=== PATIENT | male | born 1950 | race Caucasian/White ===

== ENCOUNTER 2025-09-18 12:54 | Outpatient (AMB) | payer MEDICARE, SELFPAY ==
[2025-09-18 13:02] VITALS: BP 140/68; PULSE 71; BMI 23.8
--- NOTE | 2025-09-18 13:02 | A.OFFVIS_ITS ---
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 A recent calcium scoring CT scan had reported total score of 112 mainly distributed between the LAD and RCA. Patient himself has no previous cardiac history or any other cardiac symptoms. It seems that he is fairly active including skiing, hiking extra with absolutely no concerns. He does have a history of elevated lipids but has not been on any medications for the same. He would like to just deal with that by diet and exercise. Otherwise, history of prostate cancer but managed by observation only. Otherwise, he feels quite healthy. [facility] Medical History (Updated 09/18/25 @ 14:29 by Kareem Sutton MD) Prostate cancer Asthma Surgical History (Updated 09/18/25 @ 13:20 by Bobbi Stout) H/O knee surgery Family History (Updated 09/18/25 @ 13:21 by Bobbi Stout) Mother Heart problem Father Carotid arterial disease Social History (Updated 09/18/25 @ 13:22 by Bobbi Stout) Alcohol intake: current Alcohol intake frequency: a few times a month Patient Tobacco Use Status: Never used Tobacco Review of Systems Const Denies weakness ENT Denies dizziness Card Denies chest pain, Denies chest pain with activity, Denies syncope, Denies rapid heart rate, Denies pedal edema, Denies edema, Denies leg edema, Denies lightheadedness, Denies palpitations, Denies dyspnea on exertion and Denies orthopnea Resp Reports chest congestion, Denies cough and Denies dyspnea on exertion GI Denies hematochezia and Denies change in stool character Musc Denies abnormal gait, Denies muscle cramps, Denies muscle weakness, Denies numbness, Denies radiating pain into limb and Denies tingling Neuro Denies abnormal gait, Denies dizziness, Denies syncope, Denies numbness, Denies tingling and Denies weakness Endo Denies palpitations Physical Exam Vital Signs: Last Vital Signs Pulse 71 09/18/25 13:02 BP 140/68 H 09/18/25 13:02 BMI result Body Mass Index 23.8 Const General: comfortable and no acute distress Orientation/consciousness: patient oriented x3 HEENT Other: Unremarkable Head: Yes normal to inspection Neck Neck: Yes normal visual inspection Chest Chest palpation & inspection: normal inspection of the chest Resp Auscultation: clear to auscultation bilaterally Cardio Palpation: normal PMI Heart sounds: S1 normal heart sound present, S2 normal heart sound present, no gallops, Murmur heart sound present systolic II/ and at the right sternal border and no rubs GI Palpation (GI): Soft to palpation Back/Spine/Pelvis Other: unremarkable Skin General skin exam: no rashes or lesions noted Neuro General: patient oriented x3 Extrem General: Yes normal to inspection Psych Mental Status: mental status grossly normal Office Procedures EKG Details: EKG with sinus rhythm at 71/Min; possible left atrial enlargement; PACs; [place]. [address]-[id number], Complete Assessment & Plan Assessment & Plan (1) Coronary artery calcification seen on CAT scan: Code(s): I25.10 - Atherosclerotic heart disease of [place] coronary artery without angina pectoris Category: Medical (2) Hyperlipidemia: Code(s): E78.5 - Hyperlipidemia, unspecified Category: Medical Plan Total calcium score 112. Left main 0. LAD 22. Right coronary artery 88. Circumflex 0.5. Ramus 0. Ascending aortic size 4 cm. Per PCP notes, LDL levels have been in the 140-155 range over the last few years. Overall, he is fairly healthy for his age. He does have calcification is coronaries which is not unexpected considering his age. Nevertheless as his lipids are also slightly high we did discuss starting statins. After going over the pros and cons, he felt he would rather do this by diet and exercise as he has always done and avoid statins. We agreed to recheck lipids in about 6 months' time and follow up at that time. Otherwise, he is EKGs shows isolated PACs but he does not feel any palpitations. On exam, he does have a slight systolic murmur which could indicate aortic calcification. We will get an echocardiogram to assess that further. Follow up in 6 months. Discussion Notes: I discussed the results of the patient's recent cardiac CT calcium score, explaining that for his age of 75, the findings are quite good. I clarified that his score places him in the 32nd percentile, meaning 68% of his peers have more calcification, and I characterized the amount as minimal. We reviewed his hyperlipidemia, with an LDL of 155, and the slow upward trend over the past few years. I academically advised that most cardiologists would recommend a statin, as he is already very active and further lifestyle changes may have limited impact. The patient expressed reluctance to take medication and will first attempt dietary modifications and discuss the matter further with his . I recommended an echocardiogram as a complementary test to evaluate his heart valves and overall function, to which he agreed. We agreed to a follow-up appointment in 6 months, and I advised him to obtain a repeat cholesterol panel through his primary care provider prior to that visit. Patient was informed and verbally consented to the use of an ambient scribe for clinic note documentation during this visit. Orders: Orders CA echo transthoracic complete Today I25.10 - Atherosclerotic heart disease of [place] coronary artery without angina pectoris Coding Level of Care Code New Pt Level 4 (75628) Add On Problem Visit Only Diagnoses Coronary artery calcification seen on CAT scan I25.10 Hyperlipidemia E78.5 CPT Codes EKG - CPT: 90531-Yjuskumxqfymzkexm, Complete ([id number])
--- OUTSIDE RECORDS SUMMARY | 2025-09-18 16:46 | XMS_ITS | Encounter Summary ---
Author Organization [facility] Address [address] [place] [address] Phone Care Team Providers Care Mail Carrier Technician Name Role Phone Yarely Mata WHOLESALE LOAN PROCESSOR Unavailable [phone] Derek Peterson MD, [place] Unavailable [phone] Catalino Kelly MD Unavailable [phone] Catalino Kelly MD Primary Care Provider [phone] Catalino Kelly MD Unavailable [phone] Catalino Kelly MD Unavailable [phone] Leandra Reza MD Primary Care Provider [phone] Kianna Lang MD Primary Care Provider [phone] Kianna Lang MD Unavailable Reason for Referral * Physical Therapy (Routine) - Closed Specialty Diagnoses / Procedures Referred By Felice baltazar Referred To Contact Physical Therapy Diagnoses Encounter for rehabilitation Darian Parham DO Phone: tel: fax: mailto: [address] [address] Phone: tel: Referral ID Status Reason Start Date Expiration Date Visits Re quested Visits Authorized [id number] Closed 08/09/2017 08/09/2018 1 1 Encounter Details Date Type Department Care Team (Latest Contact Info) Description 08/09/2017 Transcribe Orders [facility] Primary Care [facility] [address] [place] [address] Darian Parham DO [address] [facility], [address] [place] [address] [email or web address] Encounter for rehabilitation (Primary Dx) Social History Tobacco Use Types Packs/Day Years Used Date Smoking Tobacco: Never Assessed Sex and Gender Information Value Date Recorded Sex Assigned at Male 05/12/2020 5:42 PM EDT Legal Sex Male 10:05 PM EDT Gender Identity Male 05/12/2020 5:42 PM EDT Sexual Orientation Straight 05/12/2020 5: 42 PM EDT documented as of this encounter Plan of Treatment Upcoming Encounters Date Type Department Care Team (Late st Contact Info) Description 08/24/2025 Procedure Pass [address] [place] [address] 10/31/2025 9:15 AM EST Appointment [address] [place] [address] Kathleen Mcghee CNP [address] [place] [phone] [email or web address] 01/01/2026 12:50 PM EDT Procedure visit [facility] [address] [address] Mariano Chen MD [address] [address] [email or web address] Scheduled Referrals Name Type Priority Associated Diagnoses Orde r Schedule Ambulatory referral to [facility] Physical Therapy Outpatient Referral Routine Encounter for rehabilitation Ordered: 08/09/2017 documented as of this encounter Visit Diagnoses Diagnosis Encounter for rehabilitation- Primary documented in this encounter Additional Health Concerns Infection Onset Date Last Indicated Resolved Time CoV-Presumed 04/02/2022 04/02/2022 04/23/2022 1:21 AM EDT documented as of this encounter Care Teams Mail Carrier Technician Relationship Specialty Start Date End Date Catalino Kelly MD [address] [place] [phone] [email or web address] PCP - General Family Medicine 08/10/17 02/04/21 Leandra Reza MD [address] [place] [phone] [email or web address] PCP - General Internal Medicine 02/05/21 06/23/22 Kianna Lang MD [address] [place] [address] [email or web address] PCP - General Family Medicine 06/24/22 Yarely Mata, WHOLESALE LOAN PROCESSOR [address] [place] [address] [email or web address] Historical LMR Provider 07/06/17 09/27/21 Derek Peterson MD, [place] [address] [place] [address] [email or web address] Historical LMR Provider 07/06/17 Catalino Kelly MD [address] [place] [phone] [email or web address] Historical LMR Provider 07/06/17 Catalino Kelly MD [address] [place] [phone] [email or web address] Insurance Assigned Provider 11/13/17 10/20/19 Catalino Kelly MD [address] [place] [address] [address] [place] [phone] [email or web address] Insurance Assigned Provider 12/28/20 09/27/21 Kianna Lang MD [address] [place] [address] [address] [place] [address] [email or web address] Insurance Assigned Provider 12/25/23 documented as of this encounter Additional Source Comments The information contained in this document represents components of the legal health record. It is not the complete legal health record.[facility]
--- OUTSIDE RECORDS SUMMARY | 2025-09-18 16:46 | XMS_ITS | Encounter Summary ---
Author Organization [facility] Address [address] [place] [address] Phone Care Team Providers Care Leasing Professional Name Role Phone Yarely Mata CNP Unavailable [phone] Derek Peterson MD, [place] Unavailable [phone] Catalino Kelly MD Unavailable [phone] Catalino Kelly MD Unavailable [phone] Leandra Reza MD Primary Care Provider [phone] Kianna Lang MD Primary Care Provider [phone] Kianna Lang MD Unavailable Encounter Details Date Type Department Care Team (Latest Contact Info) Description 02/26/2021 Transcribe Orders [address] [place] [address] Leandra Reza MD [address] [place] [phone] [email or web address] Enlarged prostate with urinary obstruction (Primary Dx); Hyperlipidemia, unspecified hyperlipidemia type Social History Tobacco Use Types Packs/Day Years Used Date Smoking Tobacco: Former Cigarettes 0.5 2 1 968 - 1970 Smokeless Tobacco: Never Alcohol Use Standard Drinks/Week Comments Yes 0 (1 standard drink = 0.6 oz pur e alcohol) rarely Sex and Gender Information Value Date Recorded Sex Assigned at Male 05/12/2020 5:42 PM EDT Legal Sex Male 10:05 PM EDT Gender Identity Male 05/12/2020 5:42 PM EDT Sexual Orientation Straight 05/12/2020 5: 42 PM EDT documented as of this encounter Plan of Treatment Upcoming Encounters Date Type Department Care Team (Late st Contact Info) Description 08/24/2025 Procedure Pass [address] [place] [address] 10/31/2025 9:15 AM EST Appointment [address] [place] [address] Kathleen Mcghee CNP [address] [place] [phone] 01/01/2026 12:50 PM EDT Procedure visit [facility] [address] [address] Mariano Chen MD [address] [address] [email or web address] documented as of this encounter Results * Hemoglobin A1c (02/26/2021 10:24 AM EDT) HEMOGLOBIN A1C 5.4 4.3 - 5.8 % [facility] Blood 02/26/2021 10:2 4 AM EDT 02/26/2021 10:27 AM EDT us Leandra Reza MD LAB BLOOD BKR ORDERABLES Fi nal Result [facility] [address] [place] [address] * LFTs (hepatic panel) (02/26/2021 10:24 AM EDT) ALKALINE PHOSPHATASE 48 39 - 117 U/L [facility] TOTAL BILIRUBIN 0.9 0.0 - 1.2 mg/dL [facility] DIRECT BILIRUBIN <0.2 0 - 0.3 mg/dL [facility] Bilirubin (Indirect) NOT CALCULATED 0 - 1.5 mg/dL [facility] AST 21 0 - 37 U/L [facility] ALT 12 0 - 40 U/L [facility] TOTAL PROTEIN 7.0 6.5 - 8.0 g/dL [facility] ALBUMIN 4.2 3.9 - 4.8 g/dL [facility] GLOBULIN 2.8 1 - 4.8 g/dL [facility] A/G Ratio 1.50 1.00 - 4.80 RATIO [facility] Blood 02/26/2021 10:2 4 AM EDT 02/26/2021 10:27 AM EDT us Leandra Reza MD LAB BLOOD BKR ORDERABLES Fi nal Result [address] [address] * (ABNORMAL) Lipid panel (02/26/2021 10:24 AM EDT) HDL 58 mg/dL [facility] Comment: Interpretation <40 mg/dL: Low HDL cholesterol (major risk factor for CHD) Greater than or equal to 60 mg/dL: High HDL cholesterol ( negative risk factor for CHD) HDL - cholesterol is affected by a number of factors, e.g. smoking, excerise, hormones, sex and age. CHOLESTEROL 218 0 - 240 mg/dL [facility] TRIGLYCERIDES 99 30 - 160 mg/dL [facility] LDL 140(H) 50 - 129 mg/dL [facility] Comment: LDL levels in terms of risk for coronary heart disease: <100 mg/dL: Optimal 100-129 mg/dL: Near or above optimal 130-159 mg/dL: Borderline high 160-189 mg/dL: High >190 mg/dL: Very High CARDIAC RISK RATIO 3.8 3.4 - 5.0 C [facility] Blood 02/26/2021 10:2 4 AM EDT 02/26/2021 10:27 AM EDT us Leandra Reza MD LAB BLOOD BKR ORDERABLES Fi nal Result [facility] [address] [place], [place] [id number] * CBC and differential (02/26/2021 10:24 AM EDT) WBC 7.48 4.00 - 11.00 K/uL [facility] RBC 4.71 3.90 - 5.69 M/uL [facility] HGB 15.0 12.4 - 17.3 g/dL [facility] HCT 43.2 37.0 - 51.0 % [facility] PLT 196 140 - 430 K/uL [facility] MCV 91.7 78.0 - 97.0 fL [facility] MCH 31.8 25.0 - 33.0 pg [facility] MCHC 34.7 32.0 - 36.0 g/dL [facility] RDW 11.9 11.0 - 15.0 % [facility] MPV 11.2 8.4 - 12.8 fl [facility] NRBC 0.00 0 /100 WBCs [facility] ABSOLUTE NRBC 0.00 0 K/uL [facility] DIFF METHOD Auto [facility] NEUTS 65.7 43.0 - 75.0 % [facility] LYMPHS 20.2 18.2 - 47.4 % [facility] MONOS 9.4 4.00 - 11.00 % [facility] EOS 4.1 0.0 - 8.0 % [facility] BASOS 0.5 0.0 - 2.0 % [facility] Granulocytes, immature (%) 0.1 0.0 - 0.9 % [facility] ABSOLUTE NEUTS 4.91 1.80 - 7.70 K/uL [facility] ABSOLUTE LYMPHS 1.51 1.00 - 3.10 K/uL [facility] ABSOLUTE MONOS 0.70 0.20 - 0.80 K/uL [facility] ABSOLUTE EOS 0.31 0.00 - 0.80 K/uL [facility] ABSOLUTE BASOS 0.04 0.00 - 0.09 K/uL [facility] Granulocytes, immature 0.01 0.00 - 0.05 K/uL [facility] Blood 02/26/2021 10:2 4 AM EDT 02/26/2021 10:27 AM EDT us Leandra Reza MD LAB BLOOD BKR ORDERABLES Fi nal Result Performing Organization Address [facility] Co de Phone Number [address] [phone] * Basic metabolic panel (02/26/2021 10:24 AM EDT) SODIUM 135 133 - 146 mmol/L [facility] CHLORIDE 101 96 - 108 mmol/L [facility] POTASSIUM 4.7 3.3 - 5.1 mmol/L [facility] CO2 27 21 - 35 mmol/L [facility] BUN 17 6 - 19 mg/dL [facility] CREATININE 1.10 0.5 - 1.5 mg/dL [facility] GLUCOSE 98 70 - 99 mg/dL [facility] CALCIUM 8.8 8.4 - 10.3 mg/dL [facility] EGFR 67 >59 mL/min/1.7 3m2 [facility] Comment:Estimated glomerular filtration rate calculated using the CKD-EPI equation. ANION GAP 12 10 - 20 mmol/L [facility] Blood 02/26/2021 10:2 4 AM EDT 02/26/2021 10:27 AM EDT us Leandra Reza MD LAB BLOOD BKR ORDERABLES Fi nal Result Performing Organization Address [facility] Co de Phone Number [address] [address] documented in this encounter Visit Diagnoses Diagnosis Enlarged prostate with urinary obstruction- Primary Hypertrophy of prostate with urinary obstruction and other lower urinary tract symptoms (LUTS) Hyperlipidemia, unspecified hyperlipidemia type documented in this encounter Additional Health Concerns Infection Onset Date Last Indicated Resolved Time CoV-Presumed 04/02/2022 04/02/2022 04/23/2022 1:21 AM EDT Assessment Noted Time PHQ-2 Depression Total Score: 0 12/23/19 21 11:39 AM EDT documented as of this encounter Care Teams Leasing Professional Relationship Specialty Start Date End Date Leandra Reza MD [address] [place] [phone] [email or web address] PCP - General Internal Medicine 02/05/21 06/23/22 Kianna Lang MD [address] [place] [address] [email or web address] PCP - General Family Medicine 06/24/22 Yarely Mata CNP [address] [place] [phone] [email or web address] Historical LMR Provider 07/06/17 09/27/21 Derek Peterson MD, MS [address] [place] [address] [email or web address] Historical LMR Provider 07/06/17 Catalino Kelly MD [facility] [place] [address] [place] [phone] [email or web address] Historical LMR Provider 07/06/17 Catalino Kelly MD [facility] [place] [address] [place] [phone] [email or web address] Insurance Assigned Provider 12/28/20 09/27/21 Kianna Lang MD [address] [place] [phone] [email or web address] Insurance Assigned Provider 12/25/23 documented as of this encounter Additional Source Comments The information contained in this document represents components of the legal health record. It is not the complete legal health record.[facility]
--- OUTSIDE RECORDS SUMMARY | 2025-09-18 16:46 | XMS_ITS | Clinical Summary ---
Author Organization [facility] Address [address] [place] [id number] Phone Care Team Providers Care Senior Report Developer Name Role Phone Derek Peterson MD, MS Unavailable [phone] Catalino Kelly MD Unavailable Kianna Lang MD Primary Care Provider [phone] Kianna Lang MD Unavailable Allergies Active Allergy Reactions Criticality Noted Date Comments Penicillins Hives 03/29/2019 Budesonide-Formoterol Other (See Comments) High 09/22 Prolonged laryngitis Medications albuterol 90 mcg/actuation inhalerIndicatio ns:Moderate persistent asthma without complication Inhale 2 puffs into the lungs every 6 (six) hours as needed for wheezing. 18 g 5 3 Active acetaZOLAMIDE (DIAMOX) 125 MG tablet Take 1 tablet (125 mg total) by mouth 2 (two) times a day. 26 tablet 4 Active Additional Information Patient not taking.Reported on 08/24/2025 ADVAIR DISKUS 100-50 mcg/dose DISKUSIndication s:Medication refill Inhale 1 puff into the lungs 2 (two) times a day. 180 each 3 5 Active tadalafiL (CIALIS) 20 MG tablet Take 1 tablet (20 mg total) by mouth daily as needed (erectile dysfunction). 30 tablet 2 5 Active multivit with minerals/lutein (MULTIVITAMIN 50 PLUS ORAL) Active ciclopirox (PENLAC) 8 % solutionIndicati ons:Onychomycosi s Apply topically nightly at bedtime. Apply over nail and surrounding skin. Apply daily over previous coat. After seven (7) days, may remove with alcohol and continue cycle. 6.6 mL 2 5 Active diazePAM (VALIUM) 5 MG tablet Take 1 tablet (5 mg total) by mouth every 12 (twelve) hours as needed for anxiety. 10 tablet 1 5 Active Active Problems Problem Noted Date Diagnosed Date Encounter for annual wellness exam in Medicare p atient 07/18/2025 Assessment & Plan (07/18/2025 11:10 AM EDT): Medicare annual wellness visit conducted today - completed health risk assessment, established list of current providers and suppliers, updated medical / family history, reviewed functional ability and safety level, screened for depression. Physical assessment completed as indicated. Counseled on screening schedule and provided written copy. Risk factors and interventions discussed. Referrals provided as indicated. Opioid use: Patient is not taking any prescription opioid medication . Follow-up in 1 year recommended for AWV with PCP Sinus arrhythmia 04/12/2024 Assessment & Plan (07/18/2025 11:10 AM EDT): Stable, asymptomatic at this time Assessment & Plan (04/12/2024 11:25 AM EDT): Noted upon physical exam, irregular rhythm regular rate. ECG performed in office showed sinus arrhythmia. Discussed that this should not affect his upcoming hike in the [employer]. Altitude sickness preventative measures 04/12/20 Assessment & Plan (07/18/2025 11:10 AM EDT): Stable at this time, used Diamox in the past with good success. Assessment & Plan (04/12/2024 2:45 PM EDT): Discussed risks and benefits, how to use diamox. Discussed only treatment for altitude sickness is GOING DOWN. Pt agrees Acute left-sided thoracic back pain 01/09/2024 Assessment & Plan (07/18/2025 11:10 AM EDT): Stable, still having intermittent symptoms. Assessment & Plan (01/09/2024 2:31 PM EDT): Location of pain seems most consistent with nephrolithiasis, Cannot rule out muscular strain or constipation. Unlikely to be GI related though given absence of other findings. Will get XR and follow with CT if needed. Chronic rhinitis 09/03/2021 Assessment & Plan (07/18/2025 11:10 AM EDT): Stable, reports having post nasal drip with supine position to standing. Not currently followed by ENT due to no changes. Assessment & Plan (12/02/2022 9:27 AM EDT): Advised that he continue to use Flonase regularly when he has symptoms, though at this time does not appear to be needing it. Agree with ENT evaluation next month. Assessment & Plan (02/06/2022 12:14 PM EDT): Suspect worsened by allergy season. Add back Flonase. Assessment & Plan (10/31/2021 9:55 AM EST): Significantly improved with Flonase. We reviewed risks and benefits of long-term use of Flonase, including risk of nosebleeds. Systemic corticosteroid absorption from Flonase is not felt to be significant. Alternatives including oral antihistamines, nasal antihistamines (azelastine) and leukotriene modifying agents (e.g. montelukast) were discussed as possibilities. For now, he will continue Flonase and we will reconvene in 6 months. Assessment & Plan (09/03/2021 11:32 AM EST): He notes at times discolored post-nasal drip in the morning without significant nasal congestion. We discussed addition of an oral antihistamine and consideration of Flonase Sensimist being added to his regimen as a diagnostic and therapeutic trial. LTBI (latent tuberculosis infection) 06/28/2019 Overview (06/28/2019): With positive PPD, per patient, around 1983 and again in February 2019 (pre- employment for [employer]) confirmed with positive QuantiFERON. Chest x-ray clear. No signs or symptoms of active TB reported. Assessment & Plan (07/18/2025 11:10 AM EDT): Unchanged, stable, denies any new symptoms at this time. Assessment & Plan (06/28/2019 9:12 AM EDT): Patient was extensively educated on the phone back in February, and we reviewed this in broad terms again today. He continues to decline in LTBI therapy, which is not unreasonable in this case given that his PPD has presumably been positive for over 35 years and the highest risk of reactivation is within a 2 years following exposure and conversion. Urinary frequency 03/29/2019 Assessment & Plan (07/18/2025 11:10 AM EDT): Mya, followed by urology. Denies any new/worsening symptoms. Prostate cancer 03/29/2019 Assessment & Plan (07/18/2025 11:10 AM EDT): Mya, followed by urology, up to date with PSA testing. Assessment & Plan (10/27/2023 8:00 PM EST): Stable and continues to follow with Dr Robertson. We discussed tamsulosin and what the purpose of it is. He may continue to use it prn, and understands s/s of urinary retention. Assessment & Plan (07/07/2023 10:22 AM EDT): Following up with his urologist today, they are in the watchful waiting stage at this point. He is having increased urinary frequency which is problematic but not having this at night which I think is reassuring. Consider switching or adding medication Ditropan. Assessment & Plan (03/31/2023 6:32 AM EDT): Prolonged recovery after biopsies. Currently still in the staging phase, not entirely clear what treatment plan will be ( if early I suspect targeted radiation). He hopes to be able to do treatment locally. Will have PET this week and we will know more about next steps. Moderate persistent asthma without complication 10/20/2017 Assessment & Plan (07/18/2025 11:10 AM EDT): Stable at this time, no recent flare ups. Continues using Advair and prn albuterol. Assessment & Plan (04/12/2024 2:44 PM EDT): Stable on current medication. [place] and ensured us he would bring his albuterol inhaler Assessment & Plan (07/07/2023 10:21 AM EDT): Stable on current medication. Assessment & Plan (03/31/2023 6:33 AM EDT): Continues to follow [facility] pulmonology, but currently very low impact on activity/ breathing Assessment & Plan (12/02/2022 9:27 AM EDT): Currently well controlled on low-dose Advair, which he uses on average only once a day. We agreed to monitor clinically without repeat PFT at this time, as it would be unlikely to alter management. Assessment & Plan (02/06/2022 12:14 PM EDT): It seems that his asthmacontrol has worsened over the past several weeks. I suspect it may be related to worsening postnasal drip and the throes of peak allergy season. I doubt an active infection. We agreed no need for prednisone, antibiotics or chest imaging at this time. We will try to add back Flonase, continue oral histamine, and increase Advair to 250-50 twice daily. If symptoms persist after 3 to 4 weeks, will consider further increase in Advair and adding Singulair. Spirometry and consideration of chest imaging could be entertained then as well. Assessment & Plan (09/03/2021 11:36 AM EST): Asthma symptoms have become more noticeable, especially his harsh chest congestion and coughing with FVC, despite ongoing use of twice daily low-dose Advair Diskus. We reviewed possible extrapulmonary factors that could worsen his asthma control, including postnasal drip and acid reflux. We will try to enhance management of both of these entities and continue low-dose Advair twice daily for now. If symptoms do not improve in the next 6 to 8 weeks, we will consider repeat spirometry (vs. complete PFT) as well as a chest x-ray. We will not escalate asthma therapies at this time. Assessment & Plan (03/26/2021 9:46 AM EDT): Appears relatively well controlled on twice daily low-dose Advair. He will continue this for now and, in the coming weeks and months, consider cutting back again depending on environmental factors. We discussed repeat spirometry and, given the ongoing COVID-19 pandemic, agreed to defer for now given adequate clinical status. He is fully vaccinated against COVID-19. Assessment & Plan (08/07/2020 10:19 AM EST): Clinically stable on low-dose Advair, which he does not use every day but continues to use during periods of time when he has asthma related symptoms. This seems to be working well for him. I printed a prescription for 3 inhalers at a time with 3 refills for him to send to his mail order pharmacy in [place]. We discussed risks and benefits of the influenza vaccine today, and he declined. Assessment & Plan (05/12/2020 6:59 PM EDT): Continue with Advair, one puff daily which is patient's reported home regimen. Assessment & Plan (01/31/2020 10:11 AM EDT): Clinically stable. Continue with Advair, which he uses more on an as needed approach than standing. Given mild symptoms and recent data, this is likely a reasonable approach which we will continue. If office is open in the fall, will repeat spirometry and FeNO in about 6 months. He will call us with any concerns in the intervening time. Assessment & Plan (06/28/2019 9:59 AM EDT): His elevated exhaled nitric oxide measurement and his spirometry results today suggest that he would likely benefit from resuming a maintenance inhaled corticosteroid inhaler (e.g. Flovent, or ICS/LABA Advair) to reduce the chance of airway remodeling from chronic unchecked inflammation. This was discussed with him, but as he is feeling very well and prefers not to expose his body to medications he feels he does not absolutely need, he prefers to hold off and repeat physiologic testing in approximately 6 months. We also discussed the consideration of a trial of Singulair, but he declined this as well. He was offered influenza vaccination, but declined. Assessment & Plan (06/29/2018 1:18 PM EDT): Well-controlled on low-dose Advair when he has exacerbations (typically triggered by respiratory tract infections), and off maintenance inhalers when he is well. I expect we will be able to come off Advair in the coming weeks. Repeat exhaled nitric oxide measurement in 6 months at the time of his follow-up visit here. Assessment & Plan (12/22/2017 10:59 AM EDT): He appears to have mild intermittent asthma at this time, and does not require use of a maintenance inhaler. We reviewed indications for resumption of Advair use. He will call us with any questions or concerns in the next 6 months. I will see him back in 6 months with a repeat exhaled nitric oxide measurement at that time. Assessment & Plan (10/20/2017 10:07 AM EST): Given postinfectious cough and bronchitic symptoms, we discussed going back on Advair 100/50 twice daily, rinsing mouth after each use. The patient will continue on this for at least one month, until better. If he returns to baseline, he will discontinue use. He will start monitoring his peak flows and keep track of his personal best when he is at his baseline. We'll schedule an appointment for 3 months from now when we will perform spirometry and exhaled nitric oxide measurements. If he feels completely well, he may cancel. He declines flu shot today, risks and benefits were reviewed in detail. Erectile dysfunction 10/20/2017 Assessment & Plan (07/18/2025 11:10 AM EDT): Stable, followed by urology Gastroesophageal reflux disease 10/20/2017 Assessment & Plan (07/18/2025 11:10 AM EDT): Stable, not currently on treatment Assessment & Plan (12/02/2022 9:27 AM EDT): Continue PPI use as directed by GI. We will obtain records from [facility] (office visit and endoscopy from last fall). Adequate control of reflux symptoms is important in the setting of underlying obstructive lung disease. Assessment & Plan (10/31/2021 9:54 AM EST): Unclear how much this is truly present time can train for symptoms as his asthma has remained well controlled with addition of Flonase, now off PPI. He has connected with a lookback coordinator in [place]. He will make a decision as to whether he desires to pursue upper endoscopy as scheduled this coming summer. Assessment & Plan (09/03/2021 11:35 AM EST): He is willing to try daily PPI until his next visit here. He is also seeing gastroenterology at [facility] in about 5 weeks. Assessment & Plan (06/28/2019 9:20 AM EDT): Essentially asymptomatic and on no medication. Adequate control of reflux symptoms is important in the setting of underlying obstructive lung disease. Assessment & Plan (06/29/2018 1:18 PM EDT): No symptoms currently, off antacids. Adequate control of reflux symptoms as important in the setting of underlying obstructive lung disease. Assessment & Plan (12/22/2017 10:59 AM EDT): Adequate control of reflux symptoms as important in the setting of underlying obstructive lung disease. There are currently no symptoms off all antacid medications, and asthma is well controlled in this setting. Assessment & Plan (10/20/2017 10:08 AM EST): Symptoms are mild and he would prefer to stay off PPIs. If his symptoms worsen despite dietary modifications or if his asthma cannot be adequately controlled, he will go back on a once daily proton pump inhibitor. Loss of libido 10/20/2017 Assessment & Plan (07/18/2025 11:10 AM EDT): Unchanged, continues to be problematic. Not interested in repeating testosterone labs since he would not treat this. Assessment & Plan (01/09/2024 2:31 PM EDT): Will get T level, however not much in the way of supplementation is available to pt given his known prostate cancer. Certainly something he could discuss w urology. Mixed hyperlipidemia 10/20/2017 Assessment & Plan (07/18/2025 11:10 AM EDT): Stable, will recheck labs, order placed Orders: Lipid panel; Future Assessment & Plan (04/12/2024 12:34 PM EDT): Due for lipid re-check, we will make adjustments and discuss risk stratification based on the results. Assessment & Plan (03/31/2023 6:32 AM EDT): Discussed mild hyperlipidemia pt is interested in continuing lifestyle modifications and declines statin treatment at this time. Pulmonary nodules 10/20/2017 Overview (12/22/2017): Stable =< 5 mm nodules at a 12-month interval (November 2015-2017). Assessment & Plan (07/18/2025 11:10 AM EDT): Per chart review: Stable =< 5 mm nodules at a 12-month interval (November 2015- 2016). No recent scans in the chart. Appears low risk, tobacco history with only 1 pack year, quit 1970. Will hold off on repeating scan unless PCP feels need to do so. Assessment & Plan (10/31/2021 9:56 AM EST): Well-controlled on low-dose Advair and Flonase, which we will continue. He has not required use of his rescue inhaler. Given the ongoing COVID-19 pandemic, as well as clinical stability, we elected to monitor clinically for now. We could consider ordering repeat spirometry testing at our next visit together in 6 months. He is fully vaccinated against COVID-19 (Pfizer x3). Influenza vaccination was again advised today. Assessment & Plan (12/22/2017 9:56 AM EDT): No further dedicated follow-up is indicated in this context. Assessment & Plan (10/20/2017 10:06 AM EST): 5 mm and smaller nodules stable at 12 month interval (November 2015 - November 2016) in a patient with a minimal remote smoking history. Per updated Fleischner criteria, there is no indication follow-up. Patient understands and agrees with this management. Resolved Problems Problem Noted Date Diagnosed Date Resolved Date Closed nondisplaced fracture of lateral malleolus of left fibula 09/24/2023 07/18/2025 Assessment & Plan (10/27/2023 7:59 PM EST): I think [facility] was a fairly good indicator of his resilience and healing. He is not excited about a repeat X ray and we will hold off on that unless new symptoms, instability or swelling develop. Nasal pain 07/07/2023 07/18/2025 Assessment & Plan (07/07/2023 10:20 AM EDT): I cannot actually visualize the site of his pain, the inferior turbinate is mildly edematous but I think it is more just a narrow airway that is obstructing the view. I have advised him to continue using the nasal spray to take down any inflammation and get over to see ENT if not improving for scope. I suspect that there is probably an inflamed nasal polyp there. Ganglion cyst of flexor tend on sheath of finger of right hand 07/21/2022 07/18/2025 Assessment & Plan (07/21/2022 10:26 AM EDT): Most consistent with ganglion cyst. I do not think this needs intervention right now as it is not impairing function or causing pain, but I am happy to refer him to see hand for further management Urinary retention 05/13/2020 03/31/2023 Assessment & Plan (05/13/2020 11:45 AM EDT): Possibly due to nerve block. Patient required Santiago catheter replaced overnight. This morning he is feeling much better. He has had a significant amount of output. Creatinine noted at 0.9 Santiago catheter removed today -Will do a post void trial, if he fails he will need to have the Santiago catheter placed back in and follow-up with urology as an outpatient Patellar tendon avulsion, le ft, initial encounter 05/12/2020 03/26/2021 Assessment & Plan (05/13/2020 11:46 AM EDT): POD#1 s/p repair patellar tendon and I & D. Patient tolerated the procedure well. He does have some postoperative pain with movement. Dressing is clean dry and intact over the left knee/brace in place. -Pain control with Tylenol PRN -Dilaudid as needed -PT/OT -Question home versus rehab Patellar tendon rupture, lef t, initial encounter 05/12/2020 07/18/2025 Abnormal chest x-ray 06/29/2018 021 Overview (06/29/2018): Small medial right lower lobe infrahilar density seen on 06/09/2018. Assessment & Plan (06/29/2018 1:20 PM EDT): Given clinical history, I suspect this was a pneumonia. We will repeat a chest x-ray in mid July at an 8-week interval. We will call him with results. We reviewed the fact that if the infiltrate fails to clear, I will likely advise basic blood work for kidney function testing and a CT of the chest with IV contrast. Cough 10/20/2017 12/22/2017 Insomnia 10/20/2017 07/18/2025 Allergic rhinitis 10/20/2017 09/03/2021 Assessment & Plan (03/26/2021 9:45 AM EDT): Advised that he consider a trial of xeji-xec-mzumibm cetirizine or fexofenadine. He would prefer not to use nasal steroids, prescription nasal antihistamines or leukotriene agents. Assessment & Plan (08/07/2020 10:19 AM EST): This is mild. I recommended that he could try kcmv-rze-wezecmv cetirizine or fexofenadine. Assessment & Plan (01/31/2020 10:11 AM EDT): Clinically quiescent, Assessment & Plan (06/28/2019 10:00 AM EDT): He does have intermittent symptoms of rhinitis, but is not interested in a trial of medication (we discussed Singulair specifically). We did review the fact that this may also worsen asthma control if it remains unchecked. Assessment & Plan (06/29/2018 1:19 PM EDT): Quiescent. Assessment & Plan (12/22/2017 10:59 AM EDT): Quiescent at this time. Encounters Date Type Department Care Team Description 08/24/2025 11:00 AM EST Office Visit [facility] [address] [id number] Kathleen Mcghee CNP Adenocarcinoma of prostate (Primary Dx); Lower urinary tract symptoms (LUTS) 07/18/2025 10:20 AM EDT Telemedicine [facility] Support [address] [place] [id number] Erica Mistry, LINDSEY, POWER ELECTRON[employer] ENGINEER Encounter for annual wellness exam in Medicare patient (Primary Dx); Mixed hyperlipidemia; Prostate cancer; Sinus arrhythmia; Chronic rhinitis; Moderate persistent asthma without complication; Pulmonary nodules; Gastroesophageal reflux disease, unspecified whether esophagitis present; Erectile dysfunction, unspecified erectile dysfunction type; Loss of libido; Acute left-sided thoracic back pain; Altitude sickness preventative measures; Urinary frequency; LTBI (latent tuberculosis infection) 07/12/2025 Telephone [facility] [address] [address] Kathleen Mcghee CNP 07/09/2025 Orders Only [facility] [address] [place] [address] Provider, MD Jacinta 07/06/2025 7:05 AM EDT - 07/06/2025 11:59 PM EDT Hospital Encounter [facility] [address] [place] [address] Kathleen Mcghee, POWER ELECTRON[employer] ENGINEER Discharge Disposition: Home or Self Care from Last 3 Months Immunizations Immunization Administration Dates Next Due COVID-19 (Pre-07/12) Moderna Vaccine, Bivalent 6 mo+ 02/13/2023 COVID-19 (Pre-07/12) Pfizer Vaccine, mRNA, PF ,10/13/2020 COVID-19 Moderna Spikevax Vaccine 12+ 06/22/2025 Influenza High-Dose Quadrivalent Preservative Fr ee IM 06/22/2025 Influenza Quadrivalent Preservative Free IM 06/21 Pneumococcal conjugate PCV13 06/01/2018 Pneumococcal polysaccharide PPSV23 12/25/2020 RSV Vaccine, Unspecified 06/22/2025 Td (adult) 5 Lf Tetanus Toxoid, PF, Adsorbed 12/2015 Td (adult),2 Lf Tetanus Toxoid, PF, Adsorbed Zoster live 12/04/2009 Zoster recombinant 06/11/2019,03/24/2019 Family History Medical History Relation Comments Diabetes type II Father carotid obstruc tion, dementia? Stroke Father Parkinson's disease Maternal Grandfather Heart attack Maternal Grandmother Breast cancer Mother Cancer Mother Ulcerative colitis Mother Heart attack Paternal Grandmother Lung disease Neg Hx Prostate cancer Neg Hx Relation Status Comments Father Maternal Grandfather Maternal Grandmother Mother Paternal Grandmother Social History Tobacco Use Types Packs/Day Years Used Date Smoking Tobacco: Former Cigarettes 0.5 2 1 968 - 1970 Smokeless Tobacco: Never Alcohol Use Standard Drinks/Week Comments Yes 0 (1 standard drink = 0.6 oz pur e alcohol) rarely Child or Family Care Answer Date Record ed Do you have problems with on e of the following making it difficult for you to work, study, or receive health care? No 07/18/2025 Education Answer Date Recorded Are you interested in more education? Not on kellen e 01/15/2023 Are you concerned about learning? Not on file 01/15/2023 No 01/15/2023 No 01/15/2023 Food Answer Date Recorded Within the past 6 months we worried whether our food would run out before we got money to buy more. Never True 07/18/2025 Within the past 6 months the food we bought just didn't last and we didn't have enough money to get more. Never True Residential Stability Answer Date Recor ded What is your housing situation today? I have mick sing 07/18/2025 How many times have you move d in the past 12 months? Zero (I did not move) 07/18/2025 Paying for Meds Answer Date Recorded Do you have trouble paying for medicines? No 07/18/2025 Paying Utility Bills Answer Date Record ed Do you have trouble paying your heating or elect ricity bill? No 07/18/2025 Transportation Answer Date Recorded Has the lack of transportati on kept you from medical appointments or from getting medications? No 07/18/2025 Digital Access Answer Date Recorded No 07/18/2025 Yes 07/18/2025 Do you have reliable internet access at home? Ye s 07/18/2025 Do you have a device (e.g., phone, tablet, computer) with a working camera? Yes 07/18/2025 Intimate Partner Violence Answer Date R ecorded Denied Basic Needs Not on file 04/05/2024 In the past 12 months have y ou been in a relationship with a person who hurts, threatens, or tries to control you? No 04/05/2024 Worried food would run out Not on file 04/05 In the past 12 months have y ou been in a relationship with a person who hurts, threatens, or tries to control you? No 04/05/2024 Sex and Gender Information Value Date Recorded Sex Assigned at Male 05/12/2020 5:42 PM EDT Legal Sex Male 10:05 PM EDT Gender Identity Male 05/12/2020 5:42 PM EDT Sexual Orientation Straight 05/12/2020 5: 42 PM EDT Last Filed Vital Signs Vital Sign Reading Time Taken Comments Blood Pressure 122/62 05/16/2025 11:32 AM EDT Pulse 61 05/16/2025 11:32 AM EDT Temperature 36.7 C (98.1 F) 02/08/2024 8:18 AM EDT Respiratory Rate 18 02/08/2024 8:18 AM EDT Oxygen Saturation 99% 05/16/2025 11:32 AM EDT Inhaled Oxygen Concentration - - Weight 72.6 kg (160 lb) 07/18/2025 10:16 AM EDT Height 175.3 cm (5' 9 ) 07/18/2025 10:16 AM EDT Body Mass Index 23.63 07/18/2025 10:16 AM EDT Plan of Treatment Upcoming Encounters Date Type Department Care Team (Late st Contact Info) Description 08/24/2025 Procedure Pass [address] [place] [address] 10/31/2025 9:15 AM EST Appointment [address] [place] [address] Kathleen Mcghee CNP 165 [place] [address] 01/01/2026 12:50 PM EDT Procedure visit [facility] [address] [address] Mariano Chen MD [address] [address] [email or web address] Health Maintenance Due Date Last Done Comments COLOGUARD 1993 FIT TEST 1993 FOBT 1993 SIGMOIDOSCOPY 1993 VIRTUAL COLONOSCOPY 1993 COLONOSCOPY 10/30/2025 10/30/2015 COLORECTAL CANCER SCREENING 10/30/2025 COVID-19 VACCINE ( season) 2025 06/23/2025, 06/22/2025, 09/23/2024, Additional history exists Adult Td,Tdap Booster 01/21/2026 01/22/2016, 005 DEPRESSION SCREENING 07/18/2026 07/18/2025 LIPID PANEL 07/23/2026 07/23/2025, 07/3 09/2023, 03/26/2023, Additional history exists ZOSTER VACCINES Completed 06/11/2019, 070 01/2019, 12/04/2009 HEPATITIS C SCREENING Completed 09/06/2019, 019 PNEUMOCOCCAL VACCINES (50+ years) Completed 12/25/2020, 06/01/2018 HEPATITIS A VACCINES Aged Out 03/28/2025, 09/09/20 24 No longer eligible based on patient's age to complete this topic INFLUENZA VACCINE Completed 06/23/2025, , 09/23/2024, Additional history exists RSV VACCINE Completed 06/23/2025, 06/22/2025 SMOKING STATUS SCREENING (Once After 26 Yrs) Completed 08/24/2025 HIB VACCINES Aged Out No longer eligi ble based on patient's age to complete this topic MENINGOCOCCAL VACCINES (ACWY) Aged Out No longer eligible based on patient's age to complete this topic MENINGOCOCCAL VACCINES (B) Aged Out N o longer eligible based on patient's age to complete this topic Medical Devices Not on file Procedures Procedure Name Priority Date/Time Associated Diagnosis Comments CT CARDIAC CALCIUM SCORING Routine 08/30/2025 10:03 AM EST Pure hypercholesterolemia LIPID PANEL Routine 07/23/2025 7:11 AM EST Mixed hyperlipidemia PSA DIAGNOSTIC (MONITORING) Routine 07/06/2025 7:06 AM EDT Adenocarcinoma of prostate OUTSIDE PATHOLOGY Routine 07/04/2025 3:5 8 PM EDT HEPATITIS C ANTIBODY, QUALITATIVE Routine 09/06/2019 9:35 AM EST Need for hepatitis C screening test COLONOSCOPY FOR RESULT ENTRY ONLY Routine 10/30/2015 from Last 3 Months or Most Recently Relevant to Health Maintenance Results * CT Cardiac Calcium Scoring (08/30/2025 10:03 AM EST) Anatomical Region Laterality Modality Heart CT Diagnostic us Kianna Lang MD IMG CT CARDIAC Final Result * (ABNORMAL) Lipid Panel (07/23/2025 7:11 AM EST) Cholesterol 237(H) <200 mg/dL 07/23/2025 10:38 AM [facility] HDL 56 >=40 mg/dL 07/23/2025 10:38 AM [facility] Calculated LDL 159(H) <130 mg/dL 07/23/2025 10:38 AM [facility] Comment:LDL is calculated us ing the Lucia-NIH equation (AYDIN Cardiol. 2019January 18;5(5):540-548). Non-HDL Cholesterol 181 mg/dL 07/23/2025 10:38 AM [facility] Comment:Guidelines suggest a non-HDL cholesterol goal 30 mg/dL higher than the patient-specific LDL cholesterol goal. Cardiac Risk Ratio 4.2 0.0 - 5.0 2024 10:38 AM [facility] Triglycerides 121 <=150 mg/dL 07/23/2025 10:38 AM [facility] Blood 07/23/2025 7:11 AM EST 07/23/2025 7:11 AM EST us Kianna Lang MD LAB BLOOD BKR ORDERABLES Final R esult Performing Organization Address City/[facility]/ZIP Co de Phone Number [address] [address] * (ABNORMAL) PSA diagnostic (monitoring) (07/06/2025 7:06 AM EDT) PSA 7.72(H) 0 - 4.00 ng/mL [facility] Comment: Test Methodology Vincenzo e801 Patient results determined by assays using different manufacturers or methods may not be comparable. Blood 07/06/2025 7:06 AM EDT 07/06/2025 7:12 AM EDT us Kathleen Mcghee CNP LAB BLOOD BKR ORDERABLES Final Result Performing Organization Address City/[facility]/ZIP Co de Phone Number [address] [address] * Outside Pathology (07/04/2025 3:58 PM EDT) us Historical Provider MD PATHOLOGY ORDERABLES Daylin l Result * Hepatitis C antibody, qualitative (09/06/2019 9:35 AM EST) HCV NON-REACTIV E NON-REACTI VE [facility] Blood 09/06/2019 9:35 AM EST 09/06/2019 9:38 AM EST Catalino Kelly MD LAB BLOOD BKR ORDERABLES Final Result [facility] [address] [place] [address] * COLONOSCOPY FOR RESULT ENTRY ONLY (10/30/2015) Colonoscopy 10yr us Historical Provider HEALTH MAINTENANCE Final Result from Last 3 Months or Most Recently Relevant to Health Maintenance Insurance MEDICARE PART A & B [facility] MEDEX SUPPLEMENT MEDICARE PART A & B [email or web address] MEDEX SUPPLEMENT MEDICARE PART A & B [email or web address] MEDEX SUPPLEMENT MEDICARE PART A & B [email or web address] MEDEX SUPPLEMENT MEDICARE PART A & B [email or web address] MEDEX SUPPLEMENT MEDICARE PART A & B [facility] MEDEX SUPPLEMENT MEDICARE PART A & B [employer] MEDEX SUPPLEMENT MEDICARE PART A & B [employer] CROSS MEDEX SUPPLEMENT MEDICARE PART A & B [email or web address] MEDEX SUPPLEMENT Advance Directives For more information, please contact: [phone] (9AM - 5PM [facility], Wednesday-Wednesday) Documents on File Type Date Recorded 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 04/19/2024 7:37 PM Healthcare Proxy 09/28/2019 mailed back to pt * Full Code (Latest Code Status on File) Date Activated Date Inactivated Comments 05/12/2020 8:12 PM Question Answer Comments Code Status Confirmed With: Patient Code Status Communicated To: Inpatient Attending Care Teams Senior Report Developer Relationship Specialty Start Date End Date Kianna Lang MD [address] [place] [address] [email or web address] PCP - General Family Medicine 06/24/22 Derek Peterson MD, MS [address] [place] [address] Historical LMR Provider 07/06/17 Catailno Kelly MD [address] [place], [place] [address] [place] [phone] [email or web address] Historical LMR Provider 07/06/17 Kianna Lang MD [address] [place] [address] [email or web address] Insurance Assigned Provider 12/25/23 Additional Source Comments The information contained in this document represents components of the legal health record. It is not the complete legal health record.[facility]
--- OUTSIDE RECORDS SUMMARY | 2025-09-18 16:46 | XMS_ITS | Encounter Summary ---
Author Organization [facility] Address [address] [place] [address] Phone Care Team Providers Care Roto Mixer Operator Name Role Phone Derek Peterson MD, [place] Unavailable [phone] Catalino Kelly MD Unavailable [phone] Leandra Reza MD Primary Care Provider Kianna Lang MD Primary Care Provider [phone] Kianna Lang MD Unavailable Encounter Details Date Type Department Care Team (Late st Contact Info) Description 12/04/2021 Procedure Pass [address] [place] [address] Social History Tobacco Use Types Packs/Day Years [...] st Contact Info) Description 08/24/2025 Procedure Pass [address] [place] [address] 10/31/2025 9:15 AM EST Appointment [facility], [facility] - [address] [place] [address] Kathleen Mcghee CNP 165 [place] [phone] 01/01/2026 12:50 PM EDT Procedure visit [facility] [address] [address] Mariano Chen MD [address] [address] [email or web address] documented as of this encounter Visit Diagnoses Not on filedocumented in this encounter Additional Health Concerns Infection Onset Date Last Indicated Resolved Time CoV-Presumed 04/02/2022 04/02/2022 04/23/2022 1:21 AM EDT Assessment Noted Time PHQ-2 Depression Total Score: 0 12/23/19 11:39 AM EDT documented as of this encounter Care Teams Roto Mixer Operator Relationship Specialty Start Date End Date Leandra Reza MD [address] [place], [place] [address] [place] [address] [email or web address] PCP - General Internal Medicine 02/05/21 06/23/22 Kianna Lang MD [address] [place] [address] [email or web address] PCP - General Family Medicine 06/24/22 Derek Peterson MD, MS [address] [place] [address] [email or web address] Historical LMR Provider 07/06/17 Catalino Kelly MD [address] [place] [address] [address] [place] [address] [email or web address] Historical LMR Provider 07/06/17 Kianna Lang MD 15 [facility] 201 [place] [address] [email or web address] Insurance Assigned Provider 12/25/23 documented as of this encounter Additional Source Comments The information contained in this document represents components of the legal health record. It is not the complete legal health record.[facility]
--- OUTSIDE RECORDS SUMMARY | 2025-09-18 16:46 | XMS_ITS | Encounter Summary ---
Author Organization [facility] Address [address] [place] [address] Phone Care Team Providers Care Engineering Lecturer Name Role Phone Yarely Mata CNP Unavailable [phone] Derek Peterson MD, [place] Unavailable [phone] Catalino Kelly MD Unavailable [phone] Catalino Kelly MD Unavailable [phone] Leandra Reza MD Primary Care Provider [phone] Kianna Lang MD Primary Care Provider [phone] Kianna Lang MD Unavailable Encounter Details Date Type Department Care Team (Latest Contact Info) Description 02/05/2021 Transcribe Orders Virtual Department 30 [place] [address] Leandra Reza MD [address] [place] [phone] [email or web address] Personal history of tobacco use (Primary Dx) Social History Tobacco Use Types [...] st Contact Info) Description 08/24/2025 Procedure Pass [address] [place] [address] 10/31/2025 9:15 AM EST Appointment [address] [place] [address] Kathleen Mcghee CNP 165 [place] [address] 01/01/2026 12:50 PM EDT Procedure visit [facility] [address] [address] Mariano Chen MD [address] [address] documented as of this encounter Results * US Abdominal Aortic Screening (02/26/2021 10:48 AM EDT) Anatomical Region Laterality Modality Abdomen Ultrasound 02/26/2021 11:0 6 AM EDT Impressions 02/26/2021 11:07 AM EDT No evidence of abdominal aortic aneurysm. Narrative 02/26/2021 11:07 AM EDT HISTORY: Screening for abdominal aortic aneurysm. COMPARISON: None. FINDINGS: Abdominal aorta is normal in course and caliber. Common iliac arteries normal in caliber. No evidence of aneurysms. Procedure Note Blade Kulkarni MD - 02/26/2021 HISTORY: Screening for abdominal aortic aneurysm. COMPARISON: None. FINDINGS: Abdominal aorta is normal in course and caliber. Common iliac arteriesnormal in caliber. No evidence of aneurysms. IMPRESSION: No evidence of abdominal aortic aneurysm. us Leandra Reza MD IMG US ABDOMEN Final Resul t documented in this encounter Visit Diagnoses Diagnosis Personal history of tobacco use- Primary Personal history of tobacco use, presenting hazards to health Personal history of tobacco use Personal history of tobacco use, presenting hazards to health documented in this encounter Additional Health Concerns Infection Onset Date Last Indicated Resolved Time CoV-Presumed 04/02/2022 04/02/2022 04/23/2022 1:21 AM EDT Assessment Noted Time PHQ-2 Depression Total Score: 0 12/23/19 11:39 AM EDT documented as of this encounter Care Teams Engineering Lecturer Relationship Specialty Start Date End Date Leandra Reza MD [address] [place] [address] PCP - General Internal Medicine 02/05/21 06/23/22 Kianna Lang MD [address] [place] [address] PCP - General Family Medicine 06/24/22 Yarely Mata CNP [address] [place] [address], [address] [place] [address] Historical LMR Provider 07/06/17 09/27/21 Derek Peterson MD, MS [address] [place] [address] Historical LMR Provider 07/06/17 Catalino Kelly MD [address] [place] [address] [email or web address] Historical LMR Provider 07/06/17 Catalino Kelly MD [address] [place] [address] [address] [place] [address] [email or web address] Insurance Assigned Provider 12/28/20 09/27/21 Kianna Lang MD [address] [place] [address] [email or web address] Insurance Assigned Provider 12/25/23 documented as of this encounter Additional Source Comments The information contained in this document represents components of the legal health record. It is not the complete legal health record.[facility]
--- OUTSIDE RECORDS SUMMARY | 2025-09-18 16:46 | XMS_ITS | Encounter Summary ---
Author Organization [facility] Address [address] [facility] [address] [place] [address] Phone Care Team Providers Care Inspector Salvage Name Role Phone Derek Peterson MD, [place] Unavailable [phone] Catalino Kelly MD Unavailable Kianna Lang MD Primary Care Provider [phone] Kianna Lang MD Unavailable Reason for Visit * Reason Onset Date Comments lump in palm 07/14/2022 Encounter Details Date Type Department Care Team (Late st Contact Info) Description 07/14/2022 Nurse Triage [facility] [address] [facility] [address] [place] [address] Kianna Lang MD [address] [facility] [address] [place] [address] [email or web address] lump in palm Social History Tobacco Use Types Packs/Day Years [...] PM EDT documented as of this encounter Progress Notes * Lana Maciel RN - 07/14/2022 11:54 AM EDT Nurse Triage Encounter Note Reason for Triage Elizabet Morris contacted office for Call Disposition Schedule Visit With 3 Business Days Patient/caregiver understands and will follow disposition: Yes Patient/caregiver understands and will follow care advice: Yes, Plans To Follow Advice Disposition Comments: Protocols used: Skin Lump Or Localized Msljnlix-Lxszy-Ot Care Advice Given Care Advice Patient/Caregiver understands and will follow care advice?: Yes, plans to follow advice SEE IN OFFICE WITHIN 3 DAYS: * You need to be examined. * Let me give you an appointment. CALL BACK IF: * Fever occurs * Spreading redness occurs * Swelling becomes painful * Swelling persists over 1 week * You become worse Patient will call back with additional questions or if symptoms change or worsen Lana Maciel RN Reason for Disposition and Assessment Reason for Disposition Small swelling or lump present > 1 week ??? Patient wants to be seen Answer Assessment - Initial Assessment Questions 1. APPEARANCE of SWELLING: What does it look like? (e.g., lymph node, insect bite, mole) Visibly protrudes 2. SIZE: How large is the swelling? (inches, cm or compare to coins) Size of a grape 3. LOCATION: Where is the swelling located? Tendon to middle finger 4. ONSET: When did the swelling start? Unknown , but has been increasing in size recently 5. PAIN: Is it painful? If Yes, ask: How much? no 6. ITCH: Does it itch? If Yes, ask: How much? no 7. CAUSE: What do you think caused the swelling? unknown 8. OTHER SYMPTOMS: Do you have any other symptoms? (e.g., fever) No fever, no redness Protocols used: SKIN LUMP OR LOCALIZED [id number]-[id number] * Jamal Jean Baptiste - 07/14/2022 10:39 AM EDT PTLVM, has a lump in his palm that is slowly getting larger, he would like an OV, please contact and advise. documented in this encounter Plan of Treatment Upcoming Encounters Date Type Department Care Team (Late st Contact Info) Description 08/24/2025 Procedure Pass [address] [place] [address] 10/31/2025 9:15 AM EST Appointment [address] [place] [address] Kathleen Mcghee CNP 165 [place] [address] 01/01/2026 12:50 PM EDT Procedure visit [facility] [address] [address] Mariano Chen MD [address] [address] [email or web address] documented as of this encounter Visit Diagnoses Not on filedocumented in this encounter Additional Health Concerns Assessment Noted Time PHQ-2 Depression Total Score: 0 12/23/19 21 11:39 AM EDT documented as of this encounter Care Teams Inspector Salvage Relationship Specialty Start Date End Date Kianna Lang MD [address] [place] [address] [email or web address] PCP - General Family Medicine 06/24/22 Derek Peterson MD, MS [address] [place] [address] [email or web address] Historical LMR Provider 07/06/17 Catalino Kelly MD [address] [place], [place] [address] [place] [address] [email or web address] Historical LMR Provider 07/06/17 Kianna Lang MD [address] [place] [address] [email or web address] Insurance Assigned Provider 12/25/23 documented as of this encounter Additional Source Comments The information contained in this document represents components of the legal health record. It is not the complete legal health record.[facility]
--- OUTSIDE RECORDS SUMMARY | 2025-09-18 16:46 | XMS_ITS | Encounter Summary ---
Author Organization [facility] Address [address] [place] [address] Phone Care Team Providers Care Senior Estimator Name Role Phone Yarely Mata LASER CUTTER Unavailable [phone] Derek Peterson MD, [place] Unavailable [phone] Catalino Kelly MD Unavailable [phone] Catalino Kelly MD Primary Care Provider [phone] Catalino Kelly MD Unavailable [phone] Catalino Kelly MD Unavailable [phone] Leandra Reza MD Primary Care Provider [phone] Kianna Lang MD Primary Care Provider [phone] Kianna Lang MD Unavailable Encounter Details Date Type Department Care Team (Late st Contact Info) Description 06/09/2018 Ancillary Orders [facility] 234 [place] [address] Catalino Kelly MD [address] [facility] [place] [phone] [email or web address] Social History Tobacco Use Types Packs/Day Years Used Date Smoking Tobacco: Former Cigarettes 0.5 2 1 968 - 1970 Smokeless Tobacco: Never Alcohol Use Standard Drinks/Week Comments Yes 0 (1 standard drink = 0.6 oz pur e alcohol) 5-7 drinks per week Sex and Gender Information Value Date Recorded Sex Assigned at Male 05/12/2020 5:42 PM EDT Legal Sex Male 10:05 PM EDT Gender Identity Male 05/12/2020 5:42 PM EDT Sexual Orientation Straight 05/12/2020 5: 42 PM EDT documented as of this encounter Plan of Treatment Upcoming Encounters Date Type Department Care Team (Late st Contact Info) Description 08/24/2025 Procedure Pass [address] [place] [address] 10/31/2025 9:15 AM EST Appointment [address] [place] [address] Kathleen Mcghee CNP 165 [place] [address] [email or web address] 01/01/2026 12:50 PM EDT Procedure visit [facility] [address] [address] Mariano Chen MD [address] [address] [email or web address] documented as of this encounter Results * XR RIBS 3 OR MORE VIEWS WITH PA CHEST (LEFT) (06/09/2018 6:58 PM EDT) Anatomical Region Laterality Modality Chest Radiographic Alejandra ging 06/09/2018 8:53 PM EDT Impressions 06/09/2018 8:59 PM EDT Very minimally displaced ninth 10th and 11th lateral rib fractures with small subpleural hematoma but no other complication. POS [id number] Narrative 06/09/2018 8:59 PM EDT 6 views. No comparison There are negligibly displaced fractures of the lateral ninth, 10th and 11th ribs. Very minimal subpleural fluid collection,, subjacent to the ninth and 10th fractures. No free pleural fluid. No pneumothorax. No other bony injury. No signs of skeletal metastatic disease. Procedure Note Darian Hairston MD - 06/09/2018 6 views. No comparison There are negligibly displaced fractures of the lateral ninth, 10th [id number] ribs. Very minimal subpleural fluid collection,, subjacent to the ninth and 10thfractures. No free pleural fluid. No pneumothorax. No other bony injury. No signs of skeletal metastatic disease. IMPRESSION: Very minimally displaced ninth 10th and 11th lateral rib fractures withsmall subpleural hematoma but no other complication. POS [id number] Catalino Kelly MD IMG XR CHEST Final Res ult documented in this encounter Visit Diagnoses Diagnosis Rib pain on left side Rib pain on left side documented in this encounter Additional Health Concerns Infection Onset Date Last Indicated Resolved Time CoV-Presumed 04/02/2022 04/02/2022 04/23/2022 1:21 AM EDT documented as of this encounter Care Teams Senior Estimator Relationship Specialty Start Date End Date Catalino Kelly MD [address] [place] [address] [address] [place] [address] [email or web address] PCP - General Family Medicine 08/10/17 02/04/21 Leandra Reza MD [address] [place] [address] [address] [place] [address] PCP - General Internal Medicine 02/05/21 06/23/22 Kianna Lang MD [address] [place] [address] PCP - General Family Medicine 06/24/22 Adolfo Yarelydomo Blood, LASER CUTTER 15 [facility], [address] [place] [address] [email or web address] Historical LMR Provider 07/06/17 09/27/21 Derek Peterson MD, MS [address] [place] [address] [email or web address] Historical LMR Provider 07/06/17 Catalino Kelly MD [address] [place] [address] [email or web address] Historical LMR Provider 07/06/17 Catalino Kelly MD [address] [place] [phone] [email or web address] Insurance Assigned Provider 11/13/17 10/20/19 Catalino Kelly MD [address] [place] [phone] [email or web address] Insurance Assigned Provider 12/28/20 09/27/21 Kianna Lang MD 15 [facility] [address] [place] [address] [email or web address] Insurance Assigned Provider 12/25/23 documented as of this encounter Additional Source Comments The information contained in this document represents components of the legal health record. It is not the complete legal health record.[facility]
--- OUTSIDE RECORDS SUMMARY | 2025-09-18 16:46 | XMS_ITS | Encounter Summary ---
Author Organization [facility] Address [address] [place] [address] Phone Care Team Providers Care Advanced Manager Name Role Phone Derek Peterson MD, MS Unavailable [phone] Catalino Kelly MD Unavailable [phone] Kianna Lang MD Primary Care Provider [phone] Kianna Lang MD Unavailable Encounter Details Date Type Department Care Team (Late st Contact Info) Description 01/10/2024 Procedure Pass [address] [place] [address] Social History Tobacco Use Types Packs/Day Years [...] work, study, or receive health care? No 03/23/2023 Education Answer Date Recorded Are you interested in more education? Not on kellen e 01/15/2023 Are you concerned about learning? Not on file 01/15/2023 No 01/15/2023 No 01/15/2023 Food Answer Date Recorded Within the past 6 months we worried whether our food would run out before we got money to buy more. Never True 03/23/2023 Within the past 6 months the food we bought just didn't last and we didn't have enough money to get more. Never True Residential Stability Answer Date Recor ded What is your housing situation today? I have mick vu 03/23/2023 How many times have you move d in the past 12 months? Zero (I did not move) 03/23/2023 Paying for Meds Answer Date Recorded Do you have trouble paying for medicines? No 03/23/2023 Paying Utility Bills Answer Date Record ed Do you have trouble paying your heating or elect ricity bill? No 03/23/2023 Transportation Answer Date Recorded Has the lack of transportati on kept you from medical appointments or from getting medications? No 03/23/2023 Digital Access Answer Date Recorded No 03/23/2023 Yes 03/23/2023 Do you have reliable internet access at home? Ye s 03/23/2023 Do you have a device (e.g., phone, tablet, computer) with a working camera? Yes 03/23/2023 Sex and Gender Information Value Date Recorded Sex Assigned at Male 05/12/2020 5:42 PM EDT Legal Sex Male 10:05 PM EDT Gender Identity Male 05/12/2020 5:42 PM EDT Sexual Orientation Straight 05/12/2020 5: 42 PM EDT documented as of this encounter Last Filed Vital Signs Vital Sign Reading Time Taken Comments Blood Pressure - - Pulse - - Temperature - - Respiratory Rate - - Oxygen Saturation - - Inhaled Oxygen Concentration - - Weight 74.8 kg (165 lb) 01/11/2024 12:56 PM EDT Height 175.3 cm (5' 9 ) 01/11/2024 12:56 PM EDT Body Mass Index 24.37 01/11/2024 12:56 PM EDT documented in this encounter Plan of Treatment Upcoming Encounters Date Type Department Care Team (Late st Contact Info) Description 08/24/2025 Procedure Pass [address] [place] [address] 10/31/2025 9:15 AM EST Appointment [address] [place] [address] Kathleen Mcghee, NURSING INFORMATICS ANALYST 165 [place] [address] 01/01/2026 12:50 PM EDT Procedure visit [facility] [address] [address] Mariano Chen MD [address] [address] [email or web address] documented as of this encounter Visit Diagnoses Not on filedocumented in this encounter Additional Health Concerns Assessment Noted Time PHQ-2 Depression Total Score: 0 03/23/20 23 6:16 PM EDT documented as of this encounter Care Teams Advanced Manager Relationship Specialty Start Date End Date Kianna Lang MD [address] [place] [address] [email or web address] PCP - General Family Medicine 06/24/22 Derek Peterson MD, MS [address] [place] [address] [email or web address] Historical LMR Provider 07/06/17 Catalino Kelly MD [address] [place], [place] [address] [place] [phone] [email or web address] Historical LMR Provider 07/06/17 Kianna Lang MD [address] [address] [email or web address] Insurance Assigned Provider 12/25/23 documented as of this encounter Additional Source Comments The information contained in this document represents components of the legal health record. It is not the complete legal health record.[facility]
--- OUTSIDE RECORDS SUMMARY | 2025-09-18 16:46 | XMS_ITS | Encounter Summary ---
Author Organization [facility] Address [address] [place] [address] Phone Care Team Providers Care Protection Agent Name Role Phone Derek Peterson MD, MS Unavailable Catalino Kelly MD Unavailable [phone] Leandra Reza MD Primary Care Provider [phone] Kianna Lang MD Primary Care Provider [phone] Kianna Lang MD Unavailable Encounter Details Date Type Department Care Team (Latest Contact Info) Description 12/04/2021 Transcribe Orders Virtual Department 30 [place] [address] Leandra Reza MD [address] [place] [phone] [email or web address] Other specified soft tissue disorders (Primary Dx) Social History Tobacco Use Types [...] Contact Info) Description 08/24/2025 Procedure Pass [address] [place] [address] 10/31/2025 9:15 AM EST Appointment [address] [place] [address] Kathleen Mcghee CNP 165 [place] [address] 01/01/2026 12:50 PM EDT Procedure visit [facility] [address] [address] Mariano Chen MD [address] [address] documented as of this encounter Results * US Lower Extremity Veins Duplex (Right) (12/04/2021 2:26 PM EDT) Anatomical Region Laterality Modality Hip Right, Thigh Right, Knee Right, Leg Right, Ankle Right, Foot Right Ultrasound 12/04/2021 3:35 PM EDT Impressions 12/04/2021 3:37 PM EDT *No evidence of right lower extremity deep or superficial venous thrombosis. No evidence of right thigh Ingram's cyst. Narrative 12/04/2021 3:37 PM EDT US LOWER EXTREMITY VEINS DUPLEX (RIGHT) TECHNIQUE: VENOUS ULTRASOUND RIGHT LOWER EXTREMITY Duplex US of the right common femoral, femoral, proximal deep femoral, proximal great saphenous and popliteal veins were examined using forte scale compression ultrasound with the aid of color flow and pulsed wave Doppler. INDICATIONS: Swelling and Pain in Limb COMPARISON: None FINDINGS: Technically adequate exam demonstrates: The right common femoral, femoral, proximal deep femoral, proximal great saphenous and popliteal veins are normally compressible. There are normal pulsed wave Doppler responses in the common femoral vein with calf augmentation. The visualized calf veins are patent. The contralateral common femoral vein and proximal great saphenous vein are normally compressible. There are normal Doppler responses in the common femoral vein with calf augmentation. No evidence of right thigh ingram's cyst, collection, or mass. Procedure Note Branden Cruz MD - 12/04/2021 US LOWER EXTREMITY VEINS DUPLEX (RIGHT) TECHNIQUE: VENOUS ULTRASOUND RIGHT LOWER EXTREMITY Duplex US of the right common femoral, femoral, proximal deep femoral,proximal great saphenous and popliteal veins were examined using greyscale compression ultrasound with the aid of color flow and pulsed waveDoppler. INDICATIONS: Swelling and Pain in Limb COMPARISON: None FINDINGS: Technically adequate exam demonstrates: The right common femoral, femoral, proximal deep femoral, proximal greatsaphenous and popliteal veins are normally compressible. There are normal pulsed wave Doppler responses in the common femoral veinwith calf augmentation. The visualized calf veins are patent. The contralateral common femoral vein and proximal great saphenous veinare normally compressible. There are normal Doppler responses in thecommon femoral vein with calf augmentation. No evidence of right thigh ingram's cyst, collection, or mass. IMPRESSION: *No evidence of right lower extremity deep or superficial venousthrombosis. No evidence of right thigh Ingram's cyst. us Leandra Reza MD [facility] VASCULAR Final Resul t documented in this encounter Visit Diagnoses Diagnosis Other specified soft tissue disorders- Primary Other specified soft tissue disorders documented in this encounter Additional Health Concerns Infection Onset Date Last Indicated Resolved Time CoV-Presumed 04/02/2022 04/02/2022 04/23/2022 1:21 AM EDT Assessment Noted Time PHQ-2 Depression Total Score: 0 12/23/19 21 11:39 AM EDT documented as of this encounter Care Teams Protection Agent Relationship Specialty Start Date End Date Leandra Reza MD [address] [place] [address] [address] [place] [phone] [email or web address] PCP - General Internal Medicine 02/05/21 06/23/22 Kianna Lang MD [address] [address] [email or web address] PCP - General Family Medicine 06/24/22 Derek Peterson MD, MS [address] [place] [address] [email or web address] Historical LMR Provider 07/06/17 Catalino Kelly MD [address] [place], [place] [address] [place] [address] [email or web address] Historical LMR Provider 07/06/17 Kianna Lang MD [address] [place] [address] [email or web address] Insurance Assigned Provider 12/25/23 documented as of this encounter Additional Source Comments The information contained in this document represents components of the legal health record. It is not the complete legal health record.[facility]
--- OUTSIDE RECORDS SUMMARY | 2025-09-18 16:46 | XMS_ITS | Encounter Summary ---
Author Organization [facility] Address [address] [place] [address] [place] [address] Phone Care Team Providers Care Portrait Painter Name Role Phone Derek Peterson MD, MS Unavailable [phone] Catalino Kelly MD Unavailable Kianna Lang MD Primary Care Provider [phone] Kianna Lang MD Unavailable Encounter Details Date Type Department Care Team (Late st Contact Info) Description 01/08/2025 Procedure Pass MRI, [facility] - [address], [address] [place] [id number] Social History Tobacco Use Types Packs/Day Years [...] work, study, or receive health care? No 04/05/2024 Education Answer Date Recorded Are you interested in more education? Not on kellen e 01/15/2023 Are you concerned about learning? Not on file 01/15/2023 No 01/15/2023 No 01/15/2023 Food Answer Date Recorded Within the past 6 months we worried whether our food would run out before we got money to buy more. Never True 04/05/2024 Within the past 6 months the food we bought just didn't last and we didn't have enough money to get more. Never True Residential Stability Answer Date Recor ded What is your housing situation today? I have mick vu 04/05/2024 How many times have you move d in the past 12 months? Zero (I did not move) 04/05/2024 Paying for Meds Answer Date Recorded Do you have trouble paying for medicines? No 04/05/2024 Paying Utility Bills Answer Date Record ed Do you have trouble paying your heating or elect ricity bill? No 04/05/2024 Transportation Answer Date Recorded Has the lack of transportati on kept you from medical appointments or from getting medications? No 04/05/2024 Digital Access Answer Date Recorded No 04/05/2024 Yes 04/05/2024 Do you have reliable internet access at home? Ye s 04/05/2024 Do you have a device (e.g., phone, tablet, computer) with a working camera? Yes 04/05/2024 Intimate Partner Violence Answer Date R ecorded [...] st Contact Info) Description 08/24/2025 Procedure Pass [address] [place] [address] 10/31/2025 9:15 AM EST Appointment [address] [place] [address] Kathleen Mcghee CNP 165 [place] [address] [email or web address] 01/01/2026 12:50 PM EDT Procedure visit [facility] [address] [address] Mariano Chen MD [address] [place] [address] [address] [email or web address] documented as of this encounter Visit Diagnoses Not on filedocumented in this encounter Additional Health Concerns Assessment Noted Time PHQ-2 Depression Total Score: 0 04/05/20 4:53 PM EDT documented as of this encounter Care Teams Portrait Painter Relationship Specialty Start Date End Date Kianna Lang MD [address] [place] [address] [email or web address] PCP - General Family Medicine 06/24/22 Derek Peterson MD, MS [address] [place] [address] [email or web address] Historical LMR Provider 07/06/17 Catalino Kelly MD [address] [place], [place] [address] [place] [phone] [email or web address] Historical LMR Provider 07/06/17 Kianna Lang MD [address] [place] [address] [email or web address] Insurance Assigned Provider 12/25/23 documented as of this encounter Additional Source Comments The information contained in this document represents components of the legal health record. It is not the complete legal health record.[facility]
--- OUTSIDE RECORDS SUMMARY | 2025-09-18 16:46 | XMS_ITS | Encounter Summary ---
Author Organization [facility] Address [address] [place] [address] Phone Care Team Providers Care Personnel Security Specialist Name Role Phone Yarely Mata [facility] Unavailable [phone] Derek Peterson MD, MS Unavailable [phone] Catalino Kelly MD Unavailable [phone] Catalino Kelly MD Primary Care Provider [phone] Catalino Kelly MD Unavailable [phone] Leandra Reza MD Primary Care Provider [phone] Kianna Lang MD Primary Care Provider [phone] Kianna Lang MD Unavailable Encounter Details Date Type Department Care Team (Late st Contact Info) Description 05/12/2020 Procedure Pass OR Admitting Dept - Virtual Department [address] [place] [address] Social History Tobacco Use Types Packs/Day Years [...] st Contact Info) Description 08/24/2025 Procedure Pass [address] [place] [address] 10/31/2025 9:15 AM EST Appointment [address] [place] [address] Kathleen Mcghee CNP 165 [place] [address] 01/01/2026 12:50 PM EDT Procedure visit [facility] [address] [address] Mariano Chen MD [address] [address] [email or web address] documented as of this encounter Visit Diagnoses Not on filedocumented in this encounter Additional Health Concerns Infection Onset Date Last Indicated Resolved Time CoV-Presumed 04/02/2022 04/02/2022 04/23/2022 1:21 AM EDT Assessment Noted Time PHQ-2 Depression Total Score: 0 09/06/20 19 9:02 AM EST documented as of this encounter Care Teams Personnel Security Specialist Relationship Specialty Start Date End Date Catalino Kelly MD [address] [place] [address] [address] [place] [phone] [email or web address] PCP - General Family Medicine 08/10/17 02/04/21 Leandra Reza MD [facility] Sina [facility] [address] [place] [phone] [email or web address] PCP - General Internal Medicine 02/05/21 06/23/22 Kianna Lang MD [address] [address] [email or web address] PCP - General Family Medicine 06/24/22 Yarely Mata, THALIA [address] [place] [address], [address] [place] [address] [email or web address] Historical LMR Provider 07/06/17 09/27/21 Derek Peterson MD, MS [address] [place] [address] [email or web address] Historical LMR Provider 07/06/17 Catalino Kelly MD [address] [facility] [address] [place] [phone] [email or web address] Historical LMR Provider 07/06/17 Catalino Kelly MD [address] [facility] [address] [place] [phone] [email or web address] Insurance Assigned Provider 12/28/20 09/27/21 Kianna Lang MD [address] [address] [email or web address] Insurance Assigned Provider 12/25/23 documented as of this encounter Additional Source Comments The information contained in this document represents components of the legal health record. It is not the complete legal health record.[facility]
--- OUTSIDE RECORDS SUMMARY | 2025-09-18 16:46 | XMS_ITS | Encounter Summary ---
Author Organization [facility] Address [address] [place] [address] Phone Care Team Providers Care Tank Farm Operator Name Role Phone Derek Peterson MD, MS Unavailable [phone] Catalino Kelly MD Unavailable [phone] Leandra Reza MD Primary Care Provider [phone] Kianna Lang MD Primary Care Provider [phone] Kianna Lang MD Unavailable Reason for Referral * MRI/CAT Scan - Closed Specialty Diagnoses / Procedures Referred By Contmarcela t Referred To Contact Radiology Diagnoses Other specified soft tissue disorders Procedures MRI Femur (Right) Leandra Reza MD Phone: tel: fax: [email or web address] Referral ID Status Reason Start Date Expiration Date Visits Re quested Visits Authorized [id number] Closed 12/04/2021 12/04/2022 1 1 Encounter Details Date Type Department Care Team (Latest Contact Info) Description 12/04/2021 Transcribe Orders Virtual Department 30 [place] [address] Leandra Reza MD [address] [place] [phone] [email or web address] Other specified soft tissue disorders (Primary [...] st Contact Info) Description 08/24/2025 Procedure Pass [address] [place] [address] 10/31/2025 9:15 AM EST Appointment [address] [place] [address] Kathleen Mcghee CNP 165 [place] [address] [email or web address] 01/01/2026 12:50 PM EDT Procedure visit [facility] [address] [address] Maraino Chen MD [address] [address] [email or web address] documented as of this encounter Results * MRI FEMUR WITHOUT CONTRAST (RIGHT) (12/13/2021 10:57 AM EDT) Anatomical Region Laterality Modality Thigh Right Magnetic Resonan ce 12/14/2021 2:13 PM EDT Impressions 12/14/2021 2:28 PM EDT 1.High-grade vastus lateralis muscle strain. 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 Narrative 12/14/2021 2:28 PM EDT COMPARISON: Right femur radiographs 12/03/2021. TECHNIQUE: Exam performed on a 1.5 Ericka high-field MRI scanner. Multiplanar multisequence imaging obtained of the right thigh without gadolinium. MRI RIGHT KNEE FINDINGS: Soft tissues: Mild anterior mid to distal thigh soft tissue edema. No fluid collection. Moderate intramuscular hyperintense signal within the vastus lateralis muscle. No intramuscular fluid collection. Bone marrow/joint: Mild degenerative changes with small degenerative cysts in the lateral femoral head neck junction and central and posterior medial tibial plateau. Moderate focal superior patella marrow edema signal changes which may reflect patella chondromalacia which is suboptimally evaluated. No destructive or suspicious bone lesions. Additional findings: Incompletely imaged moderate prostatomegaly. Procedure Note Cory Castrejon MD - 12/14/2021 COMPARISON: Right femur radiographs 12/03/2021. TECHNIQUE: Exam performed on a 1.5 Ericka high-field MRI scanner.Multiplanar multisequence imaging obtained of the right thigh withoutgadolinium. MRI RIGHT KNEE FINDINGS: Soft tissues: Mild anterior mid to distal thigh soft tissue edema. Nofluid collection. Moderate intramuscular hyperintense signal within thevastus lateralis muscle. No intramuscular fluid collection. Bone marrow/joint: Mild degenerative changes with small degenerativecysts in the lateral femoral head neck junction and central and posteriormedial tibial plateau. Moderate focal superior patella marrow edema signalchanges which may reflect patella chondromalacia which is suboptimallyevaluated. No destructive or suspicious bone lesions. Additional findings: Incompletely imaged moderate prostatomegaly. IMPRESSION: 1.High-grade vastus lateralis muscle strain. 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 Leandra Reza MD IMG MR EXTREMITY Final Resu lt documented in this encounter Visit Diagnoses Diagnosis Other specified soft tissue disorders- Primary Other specified soft tissue disorders documented in this encounter Additional Health Concerns Infection Onset Date Last Indicated Resolved Time CoV-Presumed 04/02/2022 04/02/2022 04/23/2022 1:21 AM EDT Assessment Noted Time PHQ-2 Depression Total Score: 0 12/23/19 11:39 AM EDT documented as of this encounter Care Teams Tank Farm Operator Relationship Specialty Start Date End Date Leandra Reza MD [facility] Sina Moralez [address] [place] [phone] PCP - General Internal Medicine 02/05/21 06/23/22 Kianna Lang MD [address] [place] [address] PCP - General Family Medicine 06/24/22 Derek Peterson MD, MS [address] [place] [address] [email or web address] Historical LMR Provider 07/06/17 Catalino Kelly MD [facility] Sina Abraham [address] [place] [phone] [email or web address] Historical LMR Provider 07/06/17 Kianna Lang MD [address] [place] [address] [email or web address] Insurance Assigned Provider 12/25/23 documented as of this encounter Additional Source Comments The information contained in this document represents components of the legal health record. It is not the complete legal health record.[facility]
--- OUTSIDE RECORDS SUMMARY | 2025-09-18 16:46 | XMS_ITS | Encounter Summary ---
Author Organization [facility] Address [address] [place] [address] Phone Care Team Providers Care Retail Key Holder Name Role Phone Derek Peterson MD, MS Unavailable [phone] Catalino Kelly MD Unavailable Kianna Lang MD Primary Care Provider [phone] Kianna Lang MD Unavailable Encounter Details Date Type Department Care Team (Late st Contact Info) Description 09/06/2023 Procedure Pass [address] [place] [address] Social History Tobacco Use Types Packs/Day Years [...] - Inhaled Oxygen Concentration - - Weight 72.6 kg (160 lb) 09/07/2023 9:29 AM EST Height 175.3 cm (5' 9 ) 09/07/2023 9:29 AM EST Body Mass Index 23.63 09/07/2023 9:29 AM EST documented in this encounter Plan of Treatment Upcoming Encounters Date Type Department Care Team (Late st Contact Info) Description 08/24/2025 Procedure Pass [address] [place] [address] 10/31/2025 9:15 AM EST Appointment [address] [place] [address] Kathleen Mcghee, CLARIFIER [address] [place] [address] 01/01/2026 12:50 PM EDT Procedure visit [facility] [address] [address] Mariano Chen MD [address] [address] [email or web address] documented as of this encounter Visit Diagnoses Not on filedocumented in this encounter Additional Health Concerns Assessment Noted Time PHQ-2 Depression Total Score: 0 03/23/20 23 6:16 PM EDT documented as of this encounter Care Teams Retail Key Holder Relationship Specialty Start Date End Date Kianna Lang MD [address] [place] [address] [email or web address] PCP - General Family Medicine 06/24/22 Derek Peterson MD, MS [address] [place] [address] [email or web address] Historical LMR Provider 07/06/17 Catalino Kelly MD [address] [place], [place] [address] [place] [phone] [email or web address] Historical LMR Provider 07/06/17 Kianna Lang MD [address] [address] [email or web address] Insurance Assigned Provider 12/25/23 documented as of this encounter Additional Source Comments The information contained in this document represents components of the legal health record. It is not the complete legal health record.[facility]
--- OUTSIDE RECORDS SUMMARY | 2025-09-18 16:46 | XMS_ITS | Encounter Summary ---
Author Organization [facility] Address [address] [place] [phone] Phone Care Team Providers Care Military Equipment Specialist Name Role Phone Derek Peterson MD, MS Unavailable Catalino Kelly MD Unavailable [phone] Leandra Reza MD Primary Care Provider [phone] Kianna Lang MD Primary Care Provider Kianna Lang MD Unavailable Encounter Details Date Type Department Care Team (Late st Contact Info) Description 12/04/2021 Transcribe Orders Virtual Department [address] [place] [address] Leandra Reza MD [address] [place] [phone] [email or web address] Social History Tobacco Use Types Packs/Day Years [...] st Contact Info) Description 08/24/2025 Procedure Pass [address] [place] [address] 10/31/2025 9:15 AM EST Appointment [address] [place] [address] Kathleen Mcghee CNP [address] [place] [phone] [email or web address] 01/01/2026 12:50 PM EDT Procedure visit [facility] [address] [address] Mariano Chen MD [address] [address] [email or web address] documented as of this encounter Visit Diagnoses Not on filedocumented in this encounter Additional Health Concerns Infection Onset Date Last Indicated Resolved Time CoV-Presumed 04/02/2022 04/02/2022 04/23/2022 1:21 AM EDT Assessment Noted Time PHQ-2 Depression Total Score: 0 12/23/19 21 11:39 AM EDT documented as of this encounter Care Teams Military Equipment Specialist Relationship Specialty Start Date End Date Leandra Reza MD [address] [place], [place] [address] [place] [phone] PCP - General Internal Medicine 02/05/21 06/23/22 Kianna Lang MD [address] [address] [email or web address] PCP - General Family Medicine 06/24/22 Derek Peterson MD, MS [address] [place] [address] [email or web address] Historical LMR Provider 07/06/17 Catalino Kelly MD [address] [place], [place] [address] [place] [phone] [email or web address] Historical LMR Provider 07/06/17 Kianna Lang MD [address] [place] [address] [email or web address] Insurance Assigned Provider 12/25/23 documented as of this encounter Additional Source Comments The information contained in this document represents components of the legal health record. It is not the complete legal health record.[facility]
== END 2025-09-18 13:44 | disposition home or self-care (01) ==
LOC: HO.HCS 12:54
PROVIDERS: PCP Family Medicine; Visit Provider Internal Medicine
DX: I25.10 Atherosclerotic heart disease of native coronary artery without angina pectoris (principal); E78.5 Hyperlipidemia, unspecified
CPT/HCPCS: 93010; 99204; G2211

== ENCOUNTER → 2025-09-18 12:54 | Outpatient (BNVA) | payer MEDICARE, SELFPAY | PROVIDERS: PCP Family Medicine; Visit Provider Internal Medicine | DX: I25.10 Atherosclerotic heart disease of native coronary artery without angina pectoris (principal); I10 Essential (primary) hypertension; I49.1 Atrial premature depolarization; E78.5 Hyperlipidemia, unspecified | CPT/HCPCS: 93005; 99202 ==